=== PATIENT | female | born 1985 | race Caucasian/White ===

== ENCOUNTER 2017-01-30 13:10 | Inpatient (IN) | payer BC, OTHER ==
[~2017-01-30] VITALS: Ht 170.2 cm; Wt 59.9 kg
--- NOTE | 2017-01-30 16:58 | NUR ---
INTAKE ASSESSMENT RECEIVED PATIENT IN INTAKE AOX4. VITALS STABLE. PATIENT IS AMBULATORY AND IN STABLE CONDITION AND ABLE TO ANSWER NECESSARY QUESTIONS FOR INTAKE PROCESS. PATIENT BROUGHT MEDICATIONS W/ HER. UNIT POLICIES AND PROTOCOLS EXPLAINED AND PT VERBALIZED UNDERSTANDING. WILL ADMIT PT UPON ARRIVAL TO THIRD FLOOR.
[2017-01-30 17:23] VITALS: BP 98/59
--- NOTE | 2017-01-30 17:24 | NUR ---
ADMISSION NOTE VITALS BP 98/59 HR 80 TEMP 98.6 RR 16 O2 98% HEIGHT 5'7 WEIGHT 132 LBS ALLERGIES SULFA DRUGS AND CECLOR PATIENT IS A 31 YEAR OLD FEMALE ADMITTED TO [facility] ON 01/30/17 AT 1700. PATIENT IS UNDER THE CARE OF DR. LUONG FOR ETOH AND MARIJUANA DEPENDENCE. PATIENT DENIES SUICIDAL OR HOMICIDAL IDEATIONS AT THIS TIME. PATIENT DENIES CHEST PAIN OR SOB. PATIENT DENIES BEING HOSPITALIZED IN THE LAST 30 DAYS. UPON ASSESSMENT, PATIENTS SKIN IS INTACT. CIWA 13 UPON ADMISSION. AOX4 AND ABLE TO ANSWER NECESSARY QUESTIONS. PATIENT IS FULL CODE AND REGULAR DIET. PATIENT AMBULATES WITH STEADY GAIT. SHE REPORTS BEING TIRED AND HUNGRY. PATIENT DENIES SEIZURE HISTORY. PATIENT DENIES HAVING A PCP. SHE STATES HER PSYCHIATRIST IS DR. PONCE IN [place]. BREATHING IS EVEN AND UNLABORED. PATIENT STATES BOWEL HABITS ARE NORMAL. PATIENT REPORTS HISTORY OF [address] [place]. PATIENT REPORTS LIVING WITH EX BOYFRIEND BUT THEY RECENTLY BREAK UP SO SHE DOESN'T KNOW WHERE SHE WILL GO NEXT. PATIENT REPORTS HX OF ANXIETY, DEPRESSION, EATING DISORDER, AND BI POLAR DISORDER. PATIENT SMOKES ABOUT [address] LUONG HAS BEEN NOTIFIED AND PLACED CLIENT UNDER OBSERVATION. ALL NEEDS HAVE BEEN MET. SAFETY MEASURES IN PLACE PER HOSPITAL POLICY. BED IN LOWEST POSITION LOCKED, SIDE RAILS UP X2 AND PADDED, CALL LIGHT WITHIN REACH. WILL MONITOR. SUBSTANCE ABUSE ETOH, ABOUT 30 OUNCES OF WINE DAILY FOR 1 MONTH, LAST DRANK 21 OUNCES OF [place] 01/30/17 MARIJUANA, UNKNOWN AMOUNT EVERYDAY FOR 3 WEEKS, LAST SMOKED UNKNOWN AMOUNT 01/30/17
[2017-01-30] MEDS ORDERED: LAMO200T2 PO (17:29)
[2017-01-30] MEDS ORDERED: TOPI100T PO (17:29)
[2017-01-30] MEDS ORDERED: TRAZ-147 PO (17:29)
[2017-01-30] MEDS ORDERED: NALT50TA PO (17:29)
[2017-01-30] MEDS ORDERED: CHRO1TAB6 PO (17:29)
[2017-01-30] MEDS ORDERED: ARIP2TAB3 PO (17:29)
[2017-01-30 17:43] LABS: *URINE HCG, QUAL NEGATIVE (NEGATIVE)
[2017-01-30] MEDS ORDERED: DICYCLOMINE HCL 20 MG TABLET PO PRN (17:45)
[2017-01-30] MEDS ORDERED: LOPERAMIDE HCL 2 MG CAPSULE PO PRN ×2 (17:45)
[2017-01-30] MEDS ORDERED: LORAZEPAM 2 MG/1 ML VIAL IM PRN (17:45)
[2017-01-30] MEDS ORDERED: MIRALAX 17 GM POWD.PACK PO PRN (17:45)
[2017-01-30] MEDS ORDERED: IBUPROFEN 400 MG TABLET PO PRN (17:45)
[2017-01-30] MEDS ORDERED: LORAZEPAM 1 MG TABLET PO PRN ×2 (17:45)
[2017-01-30] MEDS ORDERED: ACETAMINOPHEN 325 MG TABLET PO PRN (17:45)
[2017-01-30] MEDS ORDERED: MAG HYDROX/AL HYDROX/SIMETH 30 ML LIQUID UDC PO PRN (17:45)
[2017-01-30] MEDS ORDERED: ONDANSETRON ODT 4 MG TAB.RAPDIS SL PRN (17:45)
[2017-01-30] MEDS ORDERED: THIAMINE HCL 200 MG/2 ML VIAL IM ONE (17:45)
[2017-01-30] MEDS ORDERED: MAGNESIUM HYDROXIDE 30 ML LIQUID UDC PO PRN (17:45)
[2017-01-30] MEDS ORDERED: ONDANSETRON 4 MG/2 ML VIAL IM PRN (17:45)
[2017-01-30 17:51] LABS: *AMPHETAMINE, URINE NEGATIVE (NEGATIVE); *BARBITURATE, URINE NEGATIVE (NEGATIVE); *CANNABINOID, URINE POSITIVE (NEGATIVE); *COCCAINE, URINE NEGATIVE (NEGATIVE); *OPIATE, URINE NEGATIVE (NEGATIVE); *PHENCYCLIDINE SCREEN,URINE NEGATIVE (NEGATIVE)
--- NOTE | 2017-01-30 18:40 | NUR ---
PRN MEDICATION 1 MG ATIVAN GIVEN PER ZULEIKAWA 13. WILL ENDORSE TO NIGHT NURSE FOR REASSESSMENT
[2017-01-30] MEDS ORDERED: CITA40TA22 PO (18:43)
[2017-01-30] MEDS ORDERED: LEVO125T8 PO (18:43)
[2017-01-30 18:54] LABS: BASOPHILS # (AUTO) 0.1 K/uL (0.0-8.0); BASOPHILS % (AUTO) 0.6 % (0.0-2.0); HEMOGLOBIN 11.4 G/DL (12.0-16.0); MEAN CORPUSCULAR HEMOGLOBIN 23.7 UUG (27.0-31.0)
--- NOTE | 2017-01-30 18:54 | NUR ---
END OF SHIFT NOTE Admitted patient this afternoon. No taper ordered yet. Patient admitted for ETOH dependence and marijuana usage. CIWA 13 upon admission. Vital signs stable. All needs have been met. Safety measures in place. Patient currently resting in bed with bed locked and in lowest position and call manning within reach. Will endorse to night nurse.
[2017-01-30 18:55] LABS: ALANINE AMINOTRANSFERASE 16 U/L (14-59); ALKALINE PHOSPHATASE 58 U/L (50-136); AMYLASE 63 U/L (25-115); ASPARTATE AMINOTRANSFERASE 11 U/L (15-37); BILIRUBIN,TOTAL 0.6 mg/dL (0.2-1.0); CARBON DIOXIDE 26 mmol/L (21-32); CHLORIDE 106 mmol/L (98-107); CREATININE 0.7 mg/dL (0.6-1.3); GLUCOSE 76 mg/dL (74-106); LIPASE 130 U/L (73-393); MAGNESIUM 2.1 mg/dL (1.8-2.4); POTASSIUM 3.7 mmol/L (3.5-5.1); TOTAL PROTEIN, SERUM 7.7 g/dL (6.4-8.2); UREA NITROGEN, BLOOD 9 mg/dL (7-18)
[2017-01-30 18:57] LABS: EOSINOPHILS # (AUTO) 0.9 K/uL (0.0-0.7); EOSINOPHILS % (AUTO) 7.9 % (0.0-7.0); ETHANOL < 3 MG/DL (0-0); HEMATOCRIT 36.1 % (37-47); LYMPHOCYTES # (AUTO) 3.1 K/UL (0.8-4.8); LYMPHOCYTES % (AUTO) 25.8 % (20.5-51.5); MEAN CORPUSCULAR HGB CONC 32 g/dL (32.0-37.0); MEAN CORPUSCULAR VOLUME 75.2 FL (81.0-99.0); MONOCYTES # (AUTO) 0.9 K/UL (0.1-1.30); MONOCYTES % (AUTO) 7.3 % (0.0-11.0); NEUTROPHILS # (AUTO) 6.9 K/UL (1.8-8.9); NEUTROPHILS % (AUTO) 58.4 % (38.5-71.5); PLATELET COUNT (AUTO) 337 K/UL (150-450); RED BLOOD CELL COUNT(AUTO) 4.81 MIL/UL (4.2-5.4); WHITE BLOOD COUNT (AUTO) 11.9 K/UL (4.0-11.2)
[2017-01-30 19:06] LABS: THYROID STIMULATING HORMONE 1.492 mIU/mL (0.358-3.740)
[2017-01-30 20:00] VITALS: BP 93/64
--- NOTE | 2017-01-30 20:00 | NUR ---
START OF SHIFT NOTE RECEIVED REPORT FROM DAY SHIFT NURSE. PATIENT IS A 31 YEAR OLD FEMALE, ADMITTED FOR ETOH DEPENDENCE. PATIENT IS FULL CODE, REGULAR DIET AND ALLERGIC TO CECLOR AND SULFA. UPON ADMISSION, PATIENT REPORTS DRINKING "ABOUT 30 OZ WINE " FOR A MONTH AND ON MARIJUANA "UNKNOWN AMOUNT" FOR 3 WEEKS. PATIENT IS ON FALL/SEIZURE PRECAUTION. PATIENT UNDER OBSERVATION. PATIENT WAS GIVEN PRN ATIVAN GIVEN. LAST CIWA 8. PATIENT IN ROOM RESTING, PATIENT STATES SHE'S TIRED AND WANTS TO SLEEP. NO ANXIETY, NO N/V, NOTED SWEATING. DENIES ANY PAIN AT THIS TIME. SAFETY MEASURES IN PLACE. CALL LIGHT IN REACH. WILL CONTINUE TO MONITOR.
[2017-01-31] VITALS: BP 100/58
--- NOTE | 2017-01-31 00:12 | NUR ---
ONE TIME TRAZADONE ADMINISTRATION PATIENT REQUESTS FOR SLEEP AID. ONE TIME TRAZADONE GIVEN. WILL MONITOR FOR EFFECTIVENESS
[2017-01-31] MEDS ORDERED: TRAZODONE 50 MG TABLET PO ONE ×2 (00:15)
--- NOTE | 2017-01-31 01:12 | NUR ---
ONE TIME TRAZADONE RE-ASSESSMENT PATIENT ASLEEP AT THIS TIME. RESPIRATION EVEN AND UNLABORED. SAFETY MEASURES IN PLACE. CALL LIGHT IN REACH. WILL CONTINUE TO MONITOR
[2017-01-31 04:00] VITALS: BP 91/56
--- NOTE | 2017-01-31 07:15 | NUR ---
END OF SHIFT NOTE MONITORED PATIENT THROUGHOUT SHIFT. PATIENT IS A 31 YEAR OLD FEMALE NEWLY ADMITTED FOR ETOH DEPENDENCE. PATIENT WAS PLACED ON 5 DAY ATIVAN TAPER , TO START TODAY IN AM. PATIENT WAS GIVEN PRN TRAZADONE . PATIENT IN HER ROOM MOST OF THE SHIFT. PATIENT GOES OUT FROM HER ROOM TO SMOKE ONCE. SAFETY MEASURES IN PLACE. CALL LIGHT IN REACH. WILL CONTINUE TO MONITOR. SLEPT 10 HOURS. FLUID INTAKE 547 ML. VOIDED X 3 . NO BM. LAST CIWA 2.
[2017-01-31 08:00] VITALS: BP 109/59
--- NOTE | 2017-01-31 08:00 | NUR ---
START OF SHIFT NOTE Received patient this morning Aox4. Patient states she feels very anxious and depressed this morning. Patient denies suicidal or homicidal ideations. She is to start on 5 day Ativan taper this shift. Last CIWA 2 per night nurse. No PRNS given per nightman and patient slept 10 hours. Encouraged patient to increase fluid intake. Encouraged patient to rest this shift and notify RN if S/S of W/D worsen. Will provide safe and supportive environment. Will monitor closely and offer help as needed. All needs currently met.
[2017-01-31] MEDS: LORAZEPAM 1 MG TABLET PO SCH ×4 (08:59→21:00)
[2017-01-31] MEDS: THIAMINE HCL 100 MG TABLET PO SCH (08:59)
[2017-01-31] MEDS: DOCUSATE SODIUM 250 MG CAPSULE PO SCH (09:00)
[2017-01-31] MEDS: LEVOTHYROXINE SODIUM 125 MCG TABLET PO SCH (09:00)
[2017-01-31] MEDS: FOLIC ACID 1 MG TABLET PO SCH (09:00)
[2017-01-31] MEDS ORDERED: TUBERCULIN,PURIF.PROT.DERIV. 5 TU/0.1 ML TEST ID ONE (09:00)
[2017-01-31] MEDS: MULTIVITAMINS,THERAPEUTIC TABLET PO SCH (09:00)
[2017-01-31] MEDS: CITALOPRAM 20 MG TABLET PO SCH (09:05)
[2017-01-31 12:00] VITALS: BP 89/58
[2017-01-31 16:00] VITALS: BP 102/61
--- NOTE | 2017-01-31 18:26 | NUR ---
END OF SHIFT NOTE Patient started on 5 day Ativan taper during shift and tolerating well. No PRNs given during shift. Last CIWA 6. Patient did not attend groups or activities. She isolated self in room most of shift and slept. TB test administered during shift. Vital signs stable. All needs have been met. Safety measures in place. Will endorse to night nurse.
[2017-01-31 20:00] VITALS: BP 96/60
--- NOTE | 2017-01-31 20:00 | NUR ---
START OF SHIFT NOTE RECEIVED REPORT FROM DAY SHIFT NURSE. PATIENT ON ATIVAN TAPER FOR ETOH DEPENDENCE, STARTED TODAY, TOLERATED WELL. NO ADVERSE REACTION. UPON ADMISSION, PATIENT DRINKS "ABOUT 30 OZ WINE" FOR A MONTH AND USING MARIJUANA "UNKNOWN AMOUNT" FOR 3 WEEKS. PATIENT IN HER ROOM MOST OF THE DAY. PATIENT DID NOT REQUIRE ANY PRN MEDICATION . LAST CIWA 6. SKIN INTACT. PATIENT IN ROOM, RESTING. PATIENT STATES SHE'S TIRED. PATIENTS REPORTS ANXIETY, SWEATING, FATIGUE, NO N/V, DENIES ANY PAIN AND VERY MILD PINS AND NEEDLES SENSATIONS. ON FALL/SEIZURE PRECAUTION. SAFETY MEASURES IN PLACE. CALL LIGHT IN REACH. WILL CONTINUE TO MONITOR.
[2017-01-31] MEDS: TRAZODONE 100 MG TABLET PO SCH (20:59)
[2017-01-31] MEDS: TOPIRAMATE 100 MG TABLET PO SCH (21:00)
[2017-02-01] VITALS: BP 86/54
[2017-02-01 04:00] VITALS: BP 91/51
[2017-02-01] MEDS: LEVOTHYROXINE SODIUM 125 MCG TABLET PO SCH (06:52)
[2017-02-01] MEDS ORDERED: LEVOTHYROXINE SODIUM 125 MCG TABLET PO SCH ×2 (07:00→09:00)
[2017-02-01 07:07] LABS: HEPATITIS B SURFACE AG Negative (Negative)
--- NOTE | 2017-02-01 07:13 | NUR ---
END OF SHIFT NOTE MONITORED PATIENT THROUGHOUT SHIFT. PATIENT ON ATIVAN TAPER FOR ETOH DEPENDENCE, TOLERATED WELL. NO ADVERSE REACTION. PATIENT IN HER ROOM MOST OF THE SHIFT. PATIENT DID NOT REQUIRE ANY PRN MEDICATION . SKIN INTACT. PATIENT REMAIN STABLE. REMAIN ALERT AND ORIENTED X 4. PATIENT COMPLIANT WITH MEDICATIONS. ENCOURAGE TO ATTEND AND PARTICIPATES IN GROUPS. ENCOURAGE FLUIDS. PATIENT REMAIN FREE OF INJURY. ON FALL/SEIZURE PRECAUTION. SAFETY MEASURES IN PLACE. CALL LIGHT IN REACH. WILL CONTINUE TO MONITOR. SLEPT 11 HOURS. FLUID INTAKE 1,091 ML. VOIDED X 2. NO BM. LAST CIWA 2 .
[2017-02-01 08:03] VITALS: BP 97/60
--- NOTE | 2017-02-01 08:20 | NUR ---
START OF SHIFT: RECEIVED PT A/O X 4. SHE STATES SHE SLEPT OK. SHE REPORTS FEELING ANXIOUS AND SHAKY. FINE TREMORS NOTED TO BILATERAL HANDS. ATIVAN TAPER IN PROGRESS. CIWA 6.SHE STATES THE ATIVAN IS EFFECTIVE IN REDUCING S/S OF W/D. ENCOURAGED INCREASED FLUIDS TO ASSIST IN FACILITATING DETOX PROCESS. WILL CONTINUE TO MONITOR AND OFFER SUPPORT.
[2017-02-01] MEDS: DOCUSATE SODIUM 250 MG CAPSULE PO SCH (08:48)
[2017-02-01] MEDS: ARIPIPRAZOLE 2 MG TABLET PO SCH (08:48)
[2017-02-01] MEDS: THIAMINE HCL 100 MG TABLET PO SCH (08:48)
[2017-02-01] MEDS: FOLIC ACID 1 MG TABLET PO SCH (08:48)
[2017-02-01] MEDS: LORAZEPAM 1 MG TABLET PO SCH ×3 (08:48→21:26)
[2017-02-01] MEDS: MULTIVITAMINS,THERAPEUTIC TABLET PO SCH (08:48)
[2017-02-01] MEDS: LAMOTRIGINE 200 MG TABLET PO SCH (08:49)
[2017-02-01] MEDS: CITALOPRAM 20 MG TABLET PO SCH (08:49)
[2017-02-01 12:00] VITALS: BP 91/60
[2017-02-01 16:00] VITALS: BP 93/60
--- NOTE | 2017-02-01 16:10 | NUR ---
CIWA DEFERRED. PT ASLEEP. 1500 MEDS HELD.
--- NOTE | 2017-02-01 18:24 | NUR ---
END OF SHIFT: PT CONTINUES ON SUBUTEX TAPER HE WAS GIVEN AN EXTRA DOSE OF SUBUTEX PER MD HE REPORTED CHILLS,BODY ACHES ,RESTLESSNESS AND ANXIETY AND STATED THE SUBUTEX WAS NOT EFFECTIVE. AM COWS 10. HE WAS ALSO GIVEN A ONE TIME DOSE OF ATIVAN AND STATES IT WAS EFFECTIVE. HE STATES VISTARIL AND CLONIDINE ARE NOT EFFECTIVE AND REFUSED IT.LAST COWS 4. PT ATTENDED GROUPS AND STATES HE IS MOTIVATED TOWARD RECOVERY. WILL PASS SHIFT REPORT TO [facility] NIGHT NURSE. Addendum: 02/01/17 at 1920 by LUKE CARRERO RN ERROR; NOTE FOR DIFFERENT PT.
--- NOTE | 2017-02-01 19:20 | NUR ---
END OF SHIFT: PT CONTINUES ON ATIVAN TAPER. SHE STATES SHE HAD SOME ANXIETY AND FELT SHAKY THIS AM BUT HAS FELT BETTER DAY PROGRESSED. LAST CIWA 3. AFTERNOON MEDS HELD PT WAS ASLEEP. PT ATTENDED SOME GROUPS AND WAS COMPLIANT WITH INCREASED FLUIDS. WILL PASS SHIFT REPORT TO ONCOMING NIGHT NURSE.
[2017-02-01 20:00] VITALS: BP 104/62
--- NOTE | 2017-02-01 20:00 | NUR ---
START OF SHIFT NOTE PATIENT IN ROOM, ALERT AND ORIENTED X 4. RESPIRATION EVEN AND UNLABORED. PATIENT REPORTS ANXIETY, SWEATING AND SLIGHT TREMORS FELT BUT NOT OBSERVED. NO N/V. DENIES ANY PAIN. RECEIVED REPORT FROM DAY SHIFT NURSE. PATIENT IS A 31 YEA OLD FEMALE, ADMITTED FOR ETOH DEPENDENCE. PATIENT IS ON 2ND DAY OF HER 5 DAY ATIVAN TAPER. PATIENT COMPLIANT WITH MEDICATIONS AND TREATMENT PLAN. PATIENTS 1500 MEDICATION WAS HELD DUE TO PATIENT ASLEEP. PATIENT DID NOT REQUIRE ANY PRN MEDICATION. LAST CIWA 3. ON FALL/SEIZURE PRECAUTION. SAFETY MEASURES IN PLACE. CALL LIGHT IN REACH. WILL CONTINUE TO MONITOR
[2017-02-01] MEDS: TOPIRAMATE 100 MG TABLET PO SCH (21:26)
[2017-02-01] MEDS: TRAZODONE 100 MG TABLET PO SCH (21:26)
--- NOTE | 2017-02-02 | NUR ---
CIWA/VS PATIENT ASLEEP. CIWA UNABLE TO ASSESS. RESPIRATION EVEN AND UNLABORED. RR 14. NO S/S OF DISTRESS. SAFETY MEASURES IN PLACE. CALL LIGHT IN REACH. WILL CONTINUE TO MONITOR
[2017-02-02 04:00] VITALS: BP 94/56
[2017-02-02] MEDS: LEVOTHYROXINE SODIUM 125 MCG TABLET PO SCH (06:44)
--- NOTE | 2017-02-02 07:16 | NUR ---
END OF SHIFT NOTE PATIENT REMAIN ALERT AND ORIENTED X 4. RESPIRATION EVEN AND UNLABORED. PATIENT REPORTED ANXIETY, SWEATING AND SLIGHT TREMORS FELT BUT NOT OBSERVED. NO N/V. DENIES ANY PAIN BEGINNING OF SHIFT. PATIENT IS ON 5 DAY ATIVAN TAPER, TOLERATED WELL AND NO ADVERSE REACTION. PATIENT COMPLIANT WITH MEDICATIONS AND TREATMENT PLAN. PATIENT DID NOT REQUIRE ANY PRN MEDICATION. PATIENT REMAIN FREE OF INJURY. ON FALL/SEIZURE PRECAUTION. SAFETY MEASURES IN PLACE. CALL LIGHT IN REACH. WILL CONTINUE TO MONITOR. SLEPT 8 HOURS. FLUID INTAKE 2,047 ML. VOIDED X 3. NO BM. LAST CIWA 2.
--- NOTE | 2017-02-02 07:40 | NUR ---
BEGINNING OF SHIFT Patient endorsement report received from spar finisher nurse, all pertinent information discussed. Patient is a 31 year old female, Allergies to: sulfa and ceclor. Admitted on 01/30/2017. Admitting Dx: Etoh dependence. currently with ongoing 5 day Ativan taper as ordered and is currently to begin day 3 of taper. Patient slept for 8 hours as per spar finisher. Also with last ciwa score of: 2. During spar finisher patient received no PRN medications. Received awake, alert and oriented x4. Educated regarding plan of care for the day and medication regimen with good verbal understanding. Safety measures in place. call light kept with in reach, fall and seizure precautions observed. Will continue to monitor closely.
[2017-02-02 07:42] LABS: BASOPHILS # (AUTO) 0.1 K/uL (0.0-8.0); EOSINOPHILS # (AUTO) 0.6 K/uL (0.0-0.7); EOSINOPHILS % (AUTO) 5.3 % (0.0-7.0); HEMATOCRIT 37.7 % (37-47); LYMPHOCYTES # (AUTO) 2.5 K/UL (0.8-4.8); LYMPHOCYTES % (AUTO) 24.3 % (20.5-51.5); MEAN CORPUSCULAR HGB CONC 32 g/dL (32.0-37.0); MEAN CORPUSCULAR VOLUME 75.7 FL (81.0-99.0); MONOCYTES # (AUTO) 0.7 K/UL (0.1-1.30); MONOCYTES % (AUTO) 6.3 % (0.0-11.0); NEUTROPHILS # (AUTO) 6.6 K/UL (1.8-8.9); NEUTROPHILS % (AUTO) 63.1 % (38.5-71.5); PLATELET COUNT (AUTO) 329 K/UL (150-450); RED BLOOD CELL COUNT(AUTO) 4.98 MIL/UL (4.2-5.4); WHITE BLOOD COUNT (AUTO) 10.5 K/UL (4.0-11.2)
[2017-02-02 08:05] LABS: CREATININE 0.8 mg/dL (0.6-1.3); MAGNESIUM 2.1 mg/dL (1.8-2.4); POTASSIUM 4.3 mmol/L (3.5-5.1)
[2017-02-02 08:15] VITALS: BP 98/62
[2017-02-02] MEDS: FOLIC ACID 1 MG TABLET PO SCH (08:25)
[2017-02-02] MEDS: LAMOTRIGINE 200 MG TABLET PO SCH (08:25)
[2017-02-02] MEDS: THIAMINE HCL 100 MG TABLET PO SCH (08:25)
[2017-02-02] MEDS: DOCUSATE SODIUM 250 MG CAPSULE PO SCH (08:25)
[2017-02-02] MEDS: MULTIVITAMINS,THERAPEUTIC TABLET PO SCH (08:25)
[2017-02-02] MEDS: CITALOPRAM 20 MG TABLET PO SCH (08:25)
[2017-02-02] MEDS: ARIPIPRAZOLE 2 MG TABLET PO SCH (08:25)
[2017-02-02] MEDS: LORAZEPAM 1 MG TABLET PO SCH ×4 (08:27→21:15)
[2017-02-02 12:30] VITALS: BP 95/60
--- NOTE | 2017-02-02 12:50 | NUR ---
PRN MOTRIN Patient c/o pain 6/10 d/t menstrual cramps, provided with non pharmacological interventions with no relief, administered Motrin as ordered, will monitor effectiveness of medication.
--- NOTE | 2017-02-02 13:50 | NUR ---
MOTRIN REASSESSMENT Patient reports medication effective one hour post administration, current pain level 0/10, will continue to monitor.
[2017-02-02] MEDS ORDERED: KETOROLAC TROMETHAMINE 30 MG INJ IM PRN (14:15)
[2017-02-02] MEDS ORDERED: IBUPROFEN 600 MG TABLET PO PRN (14:15)
[2017-02-02 16:22] VITALS: BP 103/66
[2017-02-02] MEDS ORDERED: IBUPROFEN 400 MG TABLET PO PRN (17:45)
--- NOTE | 2017-02-02 19:13 | NUR ---
END OF SHIFT Patient alert and oriented x4, vital signs stable during shift. Patient compliant with therapeutic plan of care. Patient continues on 5 day Ativan taper as ordered, well tolerated no ASE noted, patient currently on day 3 of taper. 0900 assessment patient presented with: tremors that can be felt but not seen, barely sweating, anxiety with ciwa score of: 6; 1300 assessment patient presented with: tremors that can be felt but not seen, barely sweating, and anxiety with ciwa score of: 5; 1700 assessment patient presented with: tremors that can be felt but not seen, barely sweating, anxiety with ciwa score of: 5. During shift administered Motrin as ordered, medication was effective one hour post administration. Patient compliant with plan of care during shift. Safety measures in place. call light kept with in reach. Patient endorsement report given to security shift supervisor nurse, all pertinent information discussed. Patient encouraged to attend group/therapy sessions to learn new coping skills to prevent relapse, noted attending and participating, denies SI/HI. safety measures in place. will continue to monitor.
[2017-02-02 20:00] VITALS: BP 105/68
--- NOTE | 2017-02-02 20:00 | NUR ---
2000 Patient received resting comfortably with eyes closed and respirations quiet and even. Patient easily aroused for vital signs and nurse assess. Patient responds to nurse's greeting and introduction with, " Oh hi, I feel okay for right now and if I need something later, I'll let you know". Patient is oriented to person, place, day and her personal situation. Easily reoriented to date and time. Patient's color is pink and her skin is warm, dry and intact. Vital signs are: 98.2-68-18 105/68, O2 Sat 97%, CIWA 2. Patient states that she has been attending [employer] groups as regularly as she can, though she did not attend PM group tonight. Patient states further that she has been eating her regular diet trays "okay" and taking fluids ad pierre with no gastric issues. Patient was admitted on 01/30/17 for Alcohol and Marijuana withdrawal and she is currently on a 5-Day Ativan medication taper, which she is apparently tolerating well thus far. Patient is cooperative and verbally appropriate when interacting with nurse, though her affect is a bit flat and her mood a little withdrawn presently. Patient states that she is having her menses at this time, but she is not having any menstrual cramps at this time. Bed is locked and in lowest position, bed rails are 1 and call light within patient's easy reach.
[2017-02-02] MEDS: TRAZODONE 100 MG TABLET PO SCH (21:15)
[2017-02-02] MEDS: TOPIRAMATE 100 MG TABLET PO SCH (21:15)
--- NOTE | 2017-02-03 | NUR ---
Patient refused to be awakened for V/S to be done at this time.
--- NOTE | 2017-02-03 04:00 | NUR ---
Patient refused to be awakened for V/S to be done at this time.
--- NOTE | 2017-02-03 06:30 | NUR ---
0630 Patient slept a total of 8 hours and she had 3 voids and no stools. Total intake was 2,146 ml p.o.. Patient had no Prn medications this shift. V/SS afebrile, last CIWA 2 at 1999. Patient is presently sleeping soundly with eyes closed and respirations deep, quiet, even at 12.
[2017-02-03] MEDS: LEVOTHYROXINE SODIUM 125 MCG TABLET PO SCH (07:00)
--- NOTE | 2017-02-03 07:58 | NUR ---
BEGINNING OF SHIFT Patient endorsement report received from maintenance technician 2nd shift nurse, all pertinent information discussed. Patient is a 31 year old female, Allergies to: sulfa and ceclor. Admitted on 01/30/2017. Admitting Dx: Etoh dependence. currently with ongoing 5 day Ativan taper as ordered and is currently to begin day 4 of taper. Patient slept for 8 hours as per maintenance technician 2nd shift. Also with last ciwa score of: 2. During maintenance technician 2nd shift patient received no PRN medications. Received awake, alert and oriented x4. Educated regarding plan of care for the day and medication regimen with good verbal understanding. Safety measures in place. call light kept with in reach, fall and seizure precautions observed. Will continue to monitor closely.
[2017-02-03 08:10] VITALS: BP 95/61
[2017-02-03] MEDS: ARIPIPRAZOLE 2 MG TABLET PO SCH (09:18)
[2017-02-03] MEDS: MULTIVITAMINS,THERAPEUTIC TABLET PO SCH (09:18)
[2017-02-03] MEDS: DOCUSATE SODIUM 250 MG CAPSULE PO SCH (09:18)
[2017-02-03] MEDS: CITALOPRAM 20 MG TABLET PO SCH (09:18)
[2017-02-03] MEDS: THIAMINE HCL 100 MG TABLET PO SCH (09:18)
[2017-02-03] MEDS: LORAZEPAM 1 MG TABLET PO SCH ×3 (09:18→20:53)
[2017-02-03] MEDS: FOLIC ACID 1 MG TABLET PO SCH (09:18)
[2017-02-03] MEDS: LAMOTRIGINE 200 MG TABLET PO SCH (09:18)
--- NOTE | 2017-02-03 10:26 | NUR ---
Therapist prompted client about group times. Client stated she will attend groups today.
[2017-02-03 13:00] VITALS: BP 96/65
[2017-02-03 17:00] VITALS: BP 97/60
--- NOTE | 2017-02-03 19:14 | NUR ---
END OF SHIFT Patient alert and oriented x4, vital signs stable during shift. Patient compliant with therapeutic plan of care. Patient continues on 5 day Ativan taper as ordered, well tolerated no ASE noted, patient currently on day 4 of taper. 0900 assessment patient presented with: anxiety and barely sweating with ciwa score of: 3; 1300 assessment patient presented with: mild anxiety with ciwa score of: 1; 1700 assessment patient presented with: mild anxiety with ciwa score of: 1. During shift administered no PRN medications. Patient compliant with plan of care during shift. Safety measures in place. call light kept with in reach. Patient endorsement report given to night auditor nurse, all pertinent information discussed. Patient encouraged to attend group/therapy sessions to learn new coping skills to prevent relapse, noted attending and participating, denies SI/HI. safety measures in place. will continue to monitor.
[2017-02-03 20:00] VITALS: BP 100/64
--- NOTE | 2017-02-03 20:00 | NUR ---
Start of Shift Pt is a 31 year old female admitted for ETOH dependence, placed on 5 day Ativan taper. Pt reported consuming "about 30 oz wine" /daily x1 month. Pt also reported using Marijuana. PMH: bipolar disorder, eating disorder, anxiety and depression. Pt is allergic to sulfa drugs and ceclor, fall/seizure precautions, regular diet and full code. Upon assessment, pt reports feeling mildly anxious, moderate sweat noted on clammy/flushed skin, respirations even/unlabored, denies SOB/chest pain, denies n/v/d, bowel sounds active x4, abdomen soft. Safety measures in place, call light within reach, side rails up x2, bed locked and in low positon. Will continue to montior.
[2017-02-03] MEDS: TOPIRAMATE 100 MG TABLET PO SCH (20:53)
[2017-02-03] MEDS: TRAZODONE 100 MG TABLET PO SCH (20:53)
--- NOTE | 2017-02-04 | NUR ---
Pt refused to be woken up for 0000 vital sign CIWA deferred d/t pt sleeping to assess while pt is awake as ordered. Safety measures in place, will continue to monitor.
--- NOTE | 2017-02-04 04:00 | NUR ---
Pt refused to be woken up for 0400 vital sign CIWA deferred d/t pt sleeping to assess while pt is awake as ordered. Safety measures in place, will continue to monitor.
[2017-02-04] MEDS: LEVOTHYROXINE SODIUM 125 MCG TABLET PO SCH (06:46)
--- NOTE | 2017-02-04 07:00 | NUR ---
End of Shift Pt is a 31 year old female admitted for ETOH dependence, placed on 5 day Ativan taper. Pt reported consuming "about 30 oz wine" /daily x1 month. Pt also reported using Marijuana. PMH: bipolar disorder, eating disorder, anxiety and depression. Pt is allergic to sulfa drugs and ceclor, fall/seizure precautions, regular diet and full code. During shift, pt reported feeling mildly anxious, moderate sweat noted on clammy/flushed skin - scheduled taper medications administered, effective in management of s/s of withdrawal as reported per pt, CIWA 3. No PRN medications administered during shift. Pt slept for 7 hours, intake of 1100 ml PO, voids x1 and stool x0 . Safety measures in place, call light within reach, side rails up x2, bed locked and in low positon. Endorsed to day shift nurse.
--- NOTE | 2017-02-04 07:52 | NUR ---
BEGINNING OF SHIFT Patient endorsement report received from maintenance technician 3rd shift nurse, all pertinent information discussed. Patient is a 31 year old female, Allergies to: sulfa and ceclor. Admitted on 01/30/2017. Admitting Dx: Etoh dependence. currently with ongoing 5 day Ativan taper as ordered and is currently to begin day 4 of taper. Patient slept for 7 hours as per maintenance technician 3rd shift. Also with last ciwa score of: 3. During maintenance technician 3rd shift patient received no PRN medications. Received awake, alert and oriented x4. Educated regarding plan of care for the day and medication regimen with good verbal understanding. Safety measures in place. call light kept with in reach, fall and seizure precautions observed. Will continue to monitor closely.
[2017-02-04 08:29] VITALS: BP 91/60
[2017-02-04] MEDS: FOLIC ACID 1 MG TABLET PO SCH (09:00)
[2017-02-04] MEDS: THIAMINE HCL 100 MG TABLET PO SCH (09:00)
[2017-02-04] MEDS: LAMOTRIGINE 200 MG TABLET PO SCH (09:00)
[2017-02-04] MEDS: DOCUSATE SODIUM 250 MG CAPSULE PO SCH (09:00)
[2017-02-04] MEDS: CITALOPRAM 20 MG TABLET PO SCH (09:00)
[2017-02-04] MEDS: ARIPIPRAZOLE 2 MG TABLET PO SCH (09:00)
[2017-02-04] MEDS: LORAZEPAM 1 MG TABLET PO SCH ×2 (09:02→20:47)
[2017-02-04] MEDS: MULTIVITAMINS,THERAPEUTIC TABLET PO SCH (09:03)
[2017-02-04 13:36] VITALS: BP 90/60
[2017-02-04 17:45] VITALS: BP 100/54
--- NOTE | 2017-02-04 18:47 | NUR ---
END OF SHIFT Patient alert and oriented x4, vital signs stable during shift. Patient compliant with therapeutic plan of care. Patient continues on 5 day Ativan taper as ordered, well tolerated no ASE noted, patient currently on day 5 of taper. 0900 assessment patient presented with: mild anxiety with ciwa score of: 1; 1300 assessment patient presented with: mild anxiety with ciwa score of: 1; 1700 assessment patient presented with: mild anxiety with ciwa score of: 1. During shift administered no PRN medications. Patient compliant with plan of care during shift. Safety measures in place. call light kept with in reach. Patient endorsement report given to hoe worker nurse, all pertinent information discussed. Patient encouraged to attend group/therapy sessions to learn new coping skills to prevent relapse, noted attending and participating, denies SI/HI. safety measures in place. will continue to monitor.
--- NOTE | 2017-02-04 19:10 | NUR ---
Start of Shift Patient Received. Patient is a 31 year old female that was admitted on 01/30/17 for ETOH Dependence under the care of Dr. Coelho. Patient is currently receiving a 5 day Ativan taper. Patient verbalizes allergies to sulfa and Ceclor, wishes to be full code, following a regular diet, placed on fall and seizure precautions, and skin noted intact. Patients past medical history noted as bipolar disorder, eating disorder, anxiety, depression. Per endorsement, patient is compliant with medications and is tolerating plan of care well. All needs attended to promptly. will continue plan of care as ordered.
[2017-02-04 20:43] VITALS: BP 104/62
[2017-02-04] MEDS: TRAZODONE 100 MG TABLET PO SCH (20:47)
[2017-02-04] MEDS: TOPIRAMATE 100 MG TABLET PO SCH (20:47)
[2017-02-05 00:20] VITALS: BP 103/56
[2017-02-05 04:11] VITALS: BP 98/52
[2017-02-05] MEDS: LEVOTHYROXINE SODIUM 125 MCG TABLET PO SCH (06:32)
--- NOTE | 2017-02-05 07:01 | NUR ---
End of Shift Patient is in bed sleeping. Breathing even and non labored. No signs of pain or discomfort noted. Patient is a 31 year old female that was admitted on 01/30/17 for ETOH Dependence and is currently receiving a 5 day Ativan taper. Patient noted to be compliant with medication and is tolerating plan of care well. No PRN medications administered. All needs attended to promptly. Will endorse to continue to monitor.
--- NOTE | 2017-02-05 08:00 | NUR ---
START OF SHIFT Rcvd endorsement from ongoing nurse, 31 y/o admitted for alcohol withdrawal, she completed 5 day Ativan taper, tolerated well, with no ASE, last CIWA 1 @ 1999. She had an uneventful night, slept 7 hrs. Client is in bed, a/o x4. he presents with depressed mood, flat affect, she reports restless legs, abdominal cramps, and fatigue, she denies any N/V/D, she denies any SI/HI. Client with moist skin, abdomen soft, nontender, quadrant x 4 active. Encourage client to attend group therapy for skills to maintain sobriety. Denied history of withdrawal induced seizures. Client is on seizure precautions. Allergies to Sulfa, Cefador, full code, regular diet. Call light within reach. Side rails x 2 up/padded. Will continue to monitor.
[2017-02-05] MEDS: THIAMINE HCL 100 MG TABLET PO SCH (08:21)
[2017-02-05] MEDS: FOLIC ACID 1 MG TABLET PO SCH (08:21)
[2017-02-05] MEDS: LAMOTRIGINE 200 MG TABLET PO SCH (08:21)
[2017-02-05] MEDS: ARIPIPRAZOLE 2 MG TABLET PO SCH (08:21)
[2017-02-05] MEDS: CITALOPRAM 20 MG TABLET PO SCH (08:21)
[2017-02-05] MEDS: MULTIVITAMINS,THERAPEUTIC TABLET PO SCH (08:21)
[2017-02-05] MEDS: DOCUSATE SODIUM 250 MG CAPSULE PO SCH (08:21)
--- NOTE | 2017-02-05 08:21 | NUR ---
PRN Bentyl 20mg Client reports abdominal cramps, Bentyl 20mg PO administered. Risk/Benefits of Bentyl discuss, she verbalized understanding. Call light within reach. Would continue to monitor.
[2017-02-05 08:59] VITALS: BP 99/59
--- NOTE | 2017-02-05 09:21 | NUR ---
Reassessment PRN Bentyl 20mg Client reports relief from abdominal cramps, Bentyl 20mg effective. Call light within reach.
[2017-02-05 12:55] VITALS: BP 95/60
[2017-02-05 15:13] LABS: *AMPHETAMINE, URINE NEGATIVE (NEGATIVE); *BARBITURATE, URINE NEGATIVE (NEGATIVE); *CANNABINOID, URINE NEGATIVE (NEGATIVE); *COCCAINE, URINE NEGATIVE (NEGATIVE); *OPIATE, URINE NEGATIVE (NEGATIVE); *PHENCYCLIDINE SCREEN,URINE NEGATIVE (NEGATIVE)
[2017-02-05 16:55] VITALS: BP 111/64
--- NOTE | 2017-02-05 18:40 | NUR ---
END OF SHIFT Will endorse client to incoming nurse, client is in room, PRN Bentyl for abdominal spasms, noted effective. Client is a/o x 4, she continues to present with depressed mood, flat affect, abdominal cramps, restless legs, and fatigue. She completed 5 day Ativan taper, tolerated well, last CIWA 2 @ 1700. Client is schedule for discharge tomorrow. Urine drug screen collected (negative for all substances). Client is fully ambulatory. Client was compliant with group therapy. Adequate PO intake 4091mL, void x 10, stool x 1. Call light within reach. Safety measures rendered and all needs met.
[2017-02-05 20:00] VITALS: BP 95/65
--- NOTE | 2017-02-05 20:00 | NUR ---
START OF SHIFT Received report from day shift nurse. Pt attended a group meeting and returned to her room after. She is a 31 yo female admitted to [facility] [place] on 01/30 for ETOH dependence. She is A&O x4 and ambulatory. Allergies to sulfa drugs and ceclor, full code status, and on a regular diet. She has a PMH of bipolar, anxiety, depression, and eating disorder. On admission she reported drinking wine 30oz per day and smoking unknown amounts of marijuana. She completed a 5 day Ativan taper today and is scheduled for discharge tomorrow. She reports mild headache. No other s/s of withdrawal noted. Fall and seizure precaution in place. Bed is down with call light in reach.
[2017-02-05] MEDS ORDERED: TRAZODONE 100 MG TABLET PO SCH (21:00)
[2017-02-05] MEDS: TOPIRAMATE 100 MG TABLET PO SCH (21:22)
[2017-02-05] MEDS ORDERED: DICY20TA28 PO (22:36)
--- NOTE | 2017-02-06 | NUR ---
0000 Vitals refused. CIWA deferred. Pt refused to be woken for 0000 vitals. She is lying in bed resting with eyes closed. Respirations even and unlabored. CIWA ordered Q4HWA. Safety measures in place.
--- NOTE | 2017-02-06 04:00 | NUR ---
0400 Vitals refused. CIWA deferred. Pt refused to be woken for 0400 vitals. She is lying in bed resting with eyes closed. Respirations even and unlabored. CIWA ordered Q4HWA. Safety measures in place.
[2017-02-06] MEDS: LEVOTHYROXINE SODIUM 125 MCG TABLET PO SCH (06:58)
--- NOTE | 2017-02-06 07:18 | NUR ---
END OF SHIFT Report provided to day shift nurse. Pt is lying in bed resting. She is a 31 yo female admitted to [facility] on 01/30 for ETOH dependence. She is A&O x4 and ambulatory. Allergies to sulfa drugs and cefaclor, full code status, and on a regular diet. She has a PMH of bipolar, anxiety, depression, and eating disorder. On admission she reported drinking wine 30oz per day and smoking unknown amounts of marijuana. Pt completed a 5 day Ativan taper and is scheduled for discharge today. Minimal s/s of withdrawal noted. Last CIWA was 1. No PRN's administered. She drank 1296 Fall and seizure precaution in place. Bed is down with call light in reach.
--- NOTE | 2017-02-06 07:19 | NUR ---
Start of shift note Pt was admitted for ETOH dependence. Pt has a PMHx of bipolar d/o, an eating disorder, anxiety and depression. Pt is a full code, on a regular diet and reports an allergy to sulfa and ceclor. Pt has completed a 5 day ativan taper without any ASE. Pt states that she feels ready for discharge, and is preparing to take a shower. Pt has no complaints at this time. Will continue to monitor pt. All needs addressed at this time.
[2017-02-06 08:00] VITALS: BP 90/57
[2017-02-06] MEDS: DOCUSATE SODIUM 250 MG CAPSULE PO SCH (08:23)
[2017-02-06] MEDS: FOLIC ACID 1 MG TABLET PO SCH (08:23)
[2017-02-06] MEDS: THIAMINE HCL 100 MG TABLET PO SCH (08:23)
[2017-02-06] MEDS: MULTIVITAMINS,THERAPEUTIC TABLET PO SCH (08:23)
[2017-02-06] MEDS: CITALOPRAM 20 MG TABLET PO SCH (08:24)
[2017-02-06] MEDS: LAMOTRIGINE 200 MG TABLET PO SCH (08:24)
[2017-02-06] MEDS: ARIPIPRAZOLE 2 MG TABLET PO SCH (08:24)
--- NOTE | 2017-02-06 09:35 | NUR ---
Discharge note Pt was admitted for ETOH dependence. Pt has a recent CIWA of 1, VS are WNL for pt, LBM 02/05/17. Pt denies SI/HI. Pt states that she feels ready for discharge. Pt verbalized her understanding of the discharge instructions. Pt discharge instructions, medications, prescriptions, and all belongings returned to pt. Pt ID band removed, pt ambulated off of unit with [employer] [employer], left facility via [facility].
== END 2017-02-06 09:35 | disposition other institution (70) | DRG 895 ==
LOC: SRC 16:31
PROVIDERS: ADMIT Internal Medicine; ATTEND Internal Medicine
PROC: HZ2ZZZZ Detoxification Services for Substance Abuse Treatment (ICD-10-PCS; principal; 2017-01-30)
PROC: HZ41ZZZ Group Counseling for Substance Abuse Treatment, Behavioral (ICD-10-PCS; 2017-02-02)
DX: F10.230 Alcohol dependence with withdrawal, uncomplicated (principal); Y90.9 Presence of alcohol in blood, level not specified; Z59.0 Homelessness; Z79.899 Other long term (current) drug therapy; E03.9 Hypothyroidism, unspecified; F12.10 Cannabis abuse, uncomplicated; Z88.2 Allergy status to sulfonamides; F31.9 Bipolar disorder, unspecified; G47.00 Insomnia, unspecified
CPT/HCPCS: 36415; 70030-TC; 80307; 80349; 83690; 83735; 84100; 84443; 84703; 85025; 86592; 86705; 86803; 87340; 87491; 87806; A4663; G0480; J3411